=== PATIENT | female | born 1945 | race Caucasian/White ===

== ENCOUNTER → 2024-10-06 13:10 | Outpatient (REF) | payer MEDICARE, OTHER, SELFPAY | LOC: HWRAD 13:10 | PROVIDERS: ATTENDING PHYSICIAN Podiatrist Foot & Ankle Surgery; FAMILY PHYSICIAN Internal Medicine | DX: S92.402A Displaced unspecified fracture of left great toe, initial encounter for closed fracture (principal); S92.492A Other fracture of left great toe, initial encounter for closed fracture | CPT/HCPCS: 73630 ==

== ENCOUNTER 2024-11-08 20:34 | Emergency (ER) | payer MEDICARE, OTHER, SELFPAY ==
[2024-11-08 20:36] VITALS: BP 150/75
[2024-11-08 22:28] VITALS: BP 185/79
--- NOTE | 2024-11-08 22:47 | ED.GENMED ---
History of Present Illness
General
Chief Complaint: Back Pain
Source: patient and family
Exam Limitations: none
Time Seen by Provider: 11/08/24 22:26
Nursing documentation reviewed up to this point in time: agreed with
History of Present Illness
History of Present Illness:
79-year-old female presents emergency department complaining of low back pain ongoing for the past 5 weeks. She slipped and fell 5 weeks ago. She went to [facility] urgent care in [place] and had x-rays and, per patient there were normal.
Her primary care prescribed her tramadol, for which she is taking half the dose.
Past History
Past History
ED Past Medical History: Arrthythmia, HTN, NIDDM and Other (Diabetic neuropathy)
ED Past Surgical History: None
Social History
Tobacco: Non-smoker
Alcohol: None
Drug: None
Personal:
Living: with family
Review of Systems
Review of Systems
Allergies reviewed?: Yes
All Other Systems: Not applicable
Constitutional: Reports no symptoms
EENT: Reports no symptoms
Respiratory: Reports no symptoms
Cardiac: Reports no symptoms
ABD/GI: Reports no symptoms
: Reports no symptoms
Musculoskeletal: Reports back pain
Skin: Reports no symptoms
Neurological: Reports no symptoms
Endocrine: Reports no symptoms
Hematologic/Lymphatic: Reports no symptoms
Psychiatric: Reports no symptoms
Phy Exam
Physical Exam
Physical Exam:
Physical Exam
General: no apparent distress, not acutely ill
Neck: supple. no meningeal signs. normal posterior pharynx
Heart: s1/s2 regular rate and rhythm, no murmur. equal radial
pulses.
HEENT: Pupils equal round reactive to light, EOMI
Lungs: no acute respiratory distress. clear bilaterally
Abdomen: normal bowel sounds. not tender. no CVAT
Neuro: alert and oriented. no focal neurological deficits cranial nerves II through XII intact
back: no step off or tenderness
Skin: no rash
Psychiatric: well kept. interactive and cooperative
Extremities: no edema. no calf tenderness. negative homans. good distal pulses
Course
Orders/Labs/Results
Orders:
Orders
11/08/24 22:46
Hip, Left 2-3 Views [CR Hip - LT w/wo Pel 2-3 Vw*] Urgent
Comment:
Reason For Exam: left hip pain, fall 5wks ago
Include a pelvis x-ray?: Yes
Lumbar Spine Complete, 4 View [CR Lumbar Spine Comp Min 4 Vw*] Urgent
Comment:
Reason For Exam: low back pain, worsening, fall 5 wks ago
11/09/24 00:43
Gabapentin [Neurontin] 100 mg PO NOW STA
Vital Signs
Initial and Last Documented VS:
Initial Vital Signs
Temp Pulse Resp BP Pulse Ox
98.2 F 112 20 150/75 98
11/08/24 20:36 11/08/24 20:36 11/08/24 20:36 11/08/24 20:36 11/08/24 20:36
Last Documented Vital Signs
Temp Pulse Resp BP Pulse Ox
98.2 F 112 20 151/79 96
11/08/24 20:36 11/08/24 20:36 11/08/24 20:36 11/09/24 00:00 11/09/24 00:45
MDM/Problems Addressed
Differential Diagnosis Includes:
Hip fracture, pelvic fracture, lumbar fracture
MDM/Problems Addressed:
79-year-old female with low back pain after fall. Suspect low back strain. No signs of cauda equina. No acute fracture seen on x-rays. Stable for discharge. Patient has follow-up with orthopedics tomorrow.
Chronic conditions affecting care: Arrhythmia
Acute Exacerbation and/or Progression of Chronic Illness: Arrhythmia
*Radiology
Radiology exam reviewed: preliminary read by ED provider (Lumbar spine hip x-ray no acute findings)
*Pulse Oximetry
Patient hypoxic: no
*Critical Care Note
Total Time (30-74mins, 75-104mins- exclusive of procedures): Not Applicable
Data Reviewed
Further Testing Considered But Not Given:
CT and MRI not indicated
ED Attending Note
-
Portions of this chart may have been created with voice recognition software.� Occasional wrong word or��sound alike� substitutions may have occurred due to the inherent limitations of voice recognition software.
Discharge Plan
Departure
Patient Disposition: Home (Routine Discharge)
Date of Disposition: 11/09/24
Time of Disposition: 00:38
Patient with high blood pressure during this ER visit?: Yes
Condition: Good
Discharge Problem:
Low back pain, Fall
Instructions: Low Back Pain (DC), BLOOD PRESSURE
Prescriptions:
New
gabapentin 100 mg capsule
100 mg PO TID PRN (Reason: pain) Qty: 30 0RF
No Action
multivitamin [Multi-Day] 1 EACH tablet
1 ea PO DAILY
pioglitazone 15 MG tablet
15 mg PO DAILY
simvastatin 5 MG tablet
5 mg PO HS
sitagliptin phosphate [Januvia] 100 MG tablet
100 mg PO DAILY
Bifidobacterium infantis [Align (B.infantis)] 4 MG capsule
4 mg PO DAILY
calcium-vitamin D3-vitamin K 1 EACH tablet,chewable
1 tab PO DAILY
Vitamin D3:
5,000 units PO DAILY
simethicone [Phazyme] 250 MG capsule
250 mg PO Daily PRN (Reason: Gas)
apixaban [Eliquis] 5 MG tablet
5 mg PO BID Qty: 60 11RF
diltiazem HCl 180 MG capsule,extended release 24hr
180 mg PO BID Qty: 60 0RF
metoprolol succinate 50 MG tablet extended release 24 hr
50 mg PO DAILY Qty: 30 0RF
cefuroxime axetil 250 MG tablet
250 mg PO BID Qty: 12 0RF
azithromycin 250 MG tablet
500 mg PO DAILY Qty: 6 0RF
Referrals:
Romel Rodriguez MD [Family Provider] -
Interventions
Interventions:
*Risk Screen - Suicide Last Done: 11/08/24 20:36
*General Assessment Last Done: 11/08/24 20:36
*Neglect/Abuse Screening Last Done: 11/08/24 20:36
*ED- Fall Risk Assessment Last Done: 11/08/24 21:27
*ED COVID-19 Vaccine History Last Done: 11/08/24 21:27
*Nursing Disposition Last Done: 11/09/24 01:20
ED-Musculoskeletal Assessment Last Done: 11/08/24 22:31
Discharge Date and Time
Discharge Date/Time: 11/09/24 01:21
Print Language: HEBREW
[2024-11-08 23:07] VITALS: BP 158/73
[2024-11-09] VITALS: BP 151/79
[2024-11-09] MEDS: NEURONTIN 100 MG PO (00:51)
== END 2024-11-09 01:21 | disposition home or self-care (01) ==
LOC: EMR 20:34
PROVIDERS: EMERGENCY PHYSICIAN Emergency Medicine; FAMILY PHYSICIAN Internal Medicine
DX: S39.92XA Unspecified injury of lower back, initial encounter (principal); M54.50 Low back pain, unspecified; M25.552 Pain in left hip; W01.0XXA Fall on same level from slipping, tripping and stumbling without subsequent striking against object, initial encounter; I10 Essential (primary) hypertension; E11.40 Type 2 diabetes mellitus with diabetic neuropathy, unspecified; I49.9 Cardiac arrhythmia, unspecified; Z79.01 Long term (current) use of anticoagulants
CPT/HCPCS: 99283; 72110; 73502

== ENCOUNTER 2025-01-18 08:39 | Inpatient (IN) | payer MEDICARE, OTHER, SELFPAY ==
[2025-01-16] VITALS (10 sets, daily range): BP systolic 121–146; BP diastolic 59–86; BMI 31.9
[2025-01-16 12:41] LABS: Hematocrit 44.6 % (37.0-47.0); Hemoglobin 15.4 g/dL (12.0-16.0); Mean Corp Hgb Conc. 34.5 g/dL (33.0-37.0); Mean Corpuscular Volume 89.2 fL (81.0-99.0); Nucleated Red Blood Cells % 0 %; Platelet Count 244 10^3/uL (130-400); Red Cell Dist. Width 13.3 % (11.5-14.5)
--- NOTE | 2025-01-16 12:58 | ED.GENMED ---
History of Present Illness
General
Chief Complaint: Weakness
Source: patient and family
Time Seen by Provider: 01/16/25 12:41
History of Present Illness
History of Present Illness:
This patient is a 79-year-old female presents emergency department after first starting to feel unwell on Wednesday described as 'dry heaves' associated with anorexia and nausea. She is now tolerating some food and drink but very little and she
describes a loss of appetite, intermittent nausea and occasional dry heaves that continue. She denies hematemesis or coffee-ground emesis. She did see her doctor on Wednesday and at that time was describing feeling a 'pinch' described as 'discomfort
pain' in the left upper quadrant that comes and goes without specific provoking or relieving factors and without radiation. She thought it might be related to constipation. She was prescribed a medication but she cannot remember what it is. She
then noted an episode of diarrhea x 2 on Wednesday, no black stools or blood in her stool. She continues to feel very tired and weak. She noted today that she felt lightheaded when she stood up, denies syncope, chest pain, headache, neck pain, focal
weakness, change in vision, change in speech, back pain, urinary symptoms, cough, sore throat, rhinorrhea, or other complaints. Patient has not taken her usual doses of diabetes medications because of her poor appetite, and states her last
Accu-Chek was today and was noted to be 165
Past History
Past History
ED Past Medical History: Arrthythmia, HTN, Hypercholesterolemia, NIDDM and Other (Diabetic neuropathy)
ED Past Surgical History: None
Social History
Tobacco: Non-smoker
Alcohol: None
Drug: None
Personal:
Living: with family
Phy Exam
Physical Exam
Physical Exam:
GENERAL: Alert , in no apparent distress
EYE: pupils equal and reactive
NECK: Supple, no significant adenopathy.
ENT: o/p clr, mm dry.
CARDIAC: Irregular irregular
LUNGS: Clear breath sounds bilaterally, no acute respiratory distress, no wheezes/rales/rhonchi
ABDOMEN: Soft, without focal tenderness, no r/g, no cvat
NEUROLOGICAL: Alert and oriented, no focal neuro deficits
SKIN: Warm and dry, skin intact.
MUSCULOSKELETAL: No edema, well perfused.
PSYCH: Normal and appropriate interaction.
Sepsis
Sepsis Screening
Sepsis Assessment: Sepsis Ruled Out
Sepsis Screen
Sepsis Screen: Sepsis Ruled Out
Date: 01/17/25
Time: 11:43
Course
Orders/Labs/Results
Orders:
Orders
01/16/25 12:07
EKG [Electrocardiogram (*1)] Urgent
Reason for Study: Chest Pain
EKG- Treatment ONCE
CR Chest - 2 Views Urgent
Comment:
Reason For Exam: suspected infection
01/16/25 12:26
Basic Metabolic Panel Urgent
Complete Blood Count/With Diff Urgent
01/16/25 12:56
Bedside Glucose- Treatment ONCE
0.9% Sodium Chloride 1000 ml [Nss] 1,000 ml IV BOLUS
US Abdomen Complete/Upper Urgent
Comment:
Reason For Exam: n/v ,hx gallstones
01/16/25 13:50
Lactic Acid Urgent
Troponin I Urgent
01/16/25 13:51
B-Hydroxybutyrate Urgent
Blood Culture Q30M
JC Source: Blood/Venous
Specimen Description:
Blood Culture Q30M
JC Source: Blood/Venous
Specimen Description:
01/16/25 16:02
Urinalysis Reflex To Culture Urgent
Date Specimen was Collected: 01/16/25
Time Specimen was Collected: 15:04
Urine Microscopic Reflex Cult Urgent
Urine Culture Urgent
JC Source: U
Specimen Description:
Date Specimen was Collected: 01/16/25
Time Specimen was Collected: 15:04
07/22/25 18:33
Admit/Transfer Patient As Directed
Co-Sign Provider:
Level of Care: Observation services
Assign to:: Telemetry
Physician / Group: arya
Diagnosis: dehydration/starvation ketaosis
Reason for Telemetry: Arrhythmia
Date to Stop Telemetry: 01/19/25
Time to Stop Telemetry: 11:00
PRN Pain Medication Management As Directed
May give lesser potent ordered pain med per pt: Yes
preference::
Protocol:: Medication orders for pain may be administered in a
manner that supports deferring to patient preference
when the pt is:
- Requesting an ordered lesser potent pain medication.
Least to most potent pain medications are defined
as: acetaminophen < NSAID < tramadol < opioids
(morphine, oxycodone, hydromorphone).
- Requesting a lesser dose of the same medication IF
ORDERED.
- Requesting a less intrusive route of administration
if both routes are prescribed by the provider (PO <
IV).
01/16/25 18:35
Code Status As Directed
Resuscitation Status: Full Code
01/16/25 20:29
0.9% Sodium Chloride 1000 ml [Nss] 1,000 ml IV 80 mls/hr
Acetaminophen [Tylenol] 650 mg PO Q4HPRN PRN
Apixaban [Eliquis] 5 mg PO BID
Dextrose 50%-Water [Dextrose 50% Syringe] 12.5 grams IV [id number] PRN
Diltiazem Extended Release [Cardizem Cd] 240 mg PO BID
Glucagon [GlucaGen] 1 mg IM PRN PRN
Ondansetron Injectable [Zofran] 4 mg IV Q6HPRN PRN
01/16/25 20:29
Activity As Directed
Activity Level: As Tolerated
Bedside Glucose Monitoring As Directed
Frequency: AC&HS
Additional Instructions:: Change to q6h if pt on TPN, tube feeding or not eating
Vital Signs As Directed
Frequency: Per unit guidelines
01/16/25 22:00
Atorvastatin [Lipitor] 10 mg PO HS
insulin glargine [Lantus Solostar U-100 Insulin] 7 unit SC HS
01/17/25 06:13
Basic Metabolic Panel IN AM
Complete Blood Count/No Diff IN AM
Glycohemoglobin (HgbA1c) IN AM
01/17/25 07:30
Insulin Aspart Corrective Low [Novolog Flexpen-Low Resistance] See Protocol SC AC
01/17/25 08:00
Escitalopram Oxalate [Lexapro] 10 mg PO DAILY
Losartan [Cozaar] 50 mg PO DAILY
Pioglitazone HCl [Actos] 30 mg PO DAILY
Sitagliptin Phosphate [Januvia] 100 mg PO DAILY
01/18/25 06:00
Basic Metabolic Panel IN AM
01/19/25 06:00
Basic Metabolic Panel IN AM
01/19/25 11:00
DC Protocol for Telemetry ONCE
01/20/25 06:00
Basic Metabolic Panel IN AM
Abnormal Lab Results
01/16/25 01/16/25 01/16/25
12: 13:51 16:02
WBC 13.0 H 10^3/uL
(4.8-10.8)
Abs Immat Gran (auto) 0.1 H 10^3/uL
(0-0.05)
Absolute Neuts (auto) 10.3 H 10^3/uL
(1.4-6.5)
Absolute Monos (auto) 1.1 H 10^3/uL
(0.1-0.6)
Immature Gran % 0.8 H %
(0-0.5)
Neutrophils % 79.1 H %
(42.2-75.2)
Lymphocytes % 10.7 L %
(20.5-51.1)
Sodium 132 L mmol/L
(135-145)
Glucose 214 H mg/dl
(70-99)
Urine Ketones 3+ A
(Negative)
Ur Occult Blood Reflex 4+ A
(Negative)
Leukocyte Esterase Rfl 2+ A
(Negative)
Urine RBC 3-6 A /HPF
(0-2)
Urine Bacteria (Reflex) Moderate A
(Negative)
Urine Albumin (Reflex) 2+ A
(Neg - Trace)
B-Hydroxybutyrate 0.64 H mmol/L
(0.02-0.27)
POC Glucose
01/16/25
16:06
WBC
Abs Immat Gran (auto)
Absolute Neuts (auto)
Absolute Monos (auto)
Immature Gran %
Neutrophils %
Lymphocytes %
Sodium
Glucose
Urine Ketones
Ur Occult Blood Reflex
Leukocyte Esterase Rfl
Urine RBC
Urine Bacteria (Reflex)
Urine Albumin (Reflex)
B-Hydroxybutyrate
POC Glucose 153 H mg/dl
(70-99)
01/16/25 12:26
01/16/25 12:26
Vital Signs
Initial and Last Documented VS:
Initial Vital Signs
Temp Pulse Resp BP Pulse Ox
98.3 F 115 20 138/59 99
01/16/25 12:00 01/16/25 12:00 01/16/25 12:00 01/16/25 12:00 01/16/25 12:00
Last Documented Vital Signs
Temp Pulse Resp BP Pulse Ox
97.9 F 104 18 122/64 98
01/17/25 11:22 01/17/25 11:22 01/17/25 11:22 01/17/25 11:22 01/17/25 11:22
*Pulse Oximetry
SaO2: 99
Oxygen Mode of Delivery: Room air
Patient hypoxic: no
*Critical Care Note
Total Time (30-74mins, 75-104mins- exclusive of procedures): Not Applicable
Update Note
Update Note:
Patient presents to the Emergency Department with ___weakness, dry heaves
Number and Complexity of Problems Addressed at the Encounter
� Chronic conditions affecting care:
� Acute Exacerbation and/or Progression of Chronic Illness:
� Differential Diagnosis includes: Not limited to DKA, infection, electrolyte disorder, dehydration, ACS, etc. etc.
Amount and/or Complexity of Data to be Reviewed and Analyzed
� I performed an independent evaluation of and my interpretation is:
EKG: Read by me, A-fib, LAD, left bundle, no acute ischemia
CT:
Xrays:
Laboratory Studies: Mild hyponatremia, mild nonspecific leukocytosis. Patient does not have an anion gap however beta hydroxybutyrate elevated and blood sugar 150s.
Other:us There is cholelithiasis but no wall thickening, or pericholecystic fluid to suggest acute cholecystitis
There is fatty infiltration of the liver
� Review of other/old records reveals:
� Clinical information was obtained by an independent historian:
� Prescriptions/Medications Considered but not given:
� Further testing considered but not performed:
Risk of Complications and/or Morbidity or Mortality of Patient Management
� Social determinants of health affecting care:
� Discussion with other providers (PCP, Hospitalists, Consultants, etc):
� Escalation of care including admission/observation vs risk of discharge considered: Patient still feels generally unwell with poor appetite. Suspect lab abnormalities related to patient's poor p.o. intake/starvation ketosis.
Doubt euglycemic DKA given no anion gap noted. IV fluids, observation, usual insulin dosing.
ED Attending Note
-
Portions of this chart may have been created with voice recognition software.� Occasional wrong word or��sound alike� substitutions may have occurred due to the inherent limitations of voice recognition software.
Discharge Plan
Departure
Patient Disposition: Admit
Date of Disposition: 01/16/25
Time of Disposition: 18:52
Admit to: Med/Surg
Presentation/result/management discussed w/ accepting MD/DO: Hospitalist
Condition: Fair
Discharge Problem:
Diabetes, Dehydration
Interventions
Interventions:
*Risk Screen - Suicide Last Done: 01/16/25 21:30
*General Assessment Last Done: 01/16/25 12:56
*Neglect/Abuse Screening Last Done: 01/16/25 12:56
*ED- Fall Risk Assessment Last Done: 01/16/25 12:56
*ED COVID-19 Vaccine History Last Done: 01/16/25 21:30
*Nursing Disposition Last Done: 01/16/25 20:25
ED- Cardiac Assessment Last Done: 01/16/25 12:56
ED- Neurological Assessment Last Done: 01/16/25 12:56
ED- Pulmonary Assessment Last Done: 01/16/25 12:56
Discharge Date and Time
Discharge Date/Time: 01/16/25 20:25
[2025-01-16 13:21] LABS: Blood Urea Nitrogen 16 mg/dl (7-17); Calcium 9.4 mg/dl (8.4-10.2); Carbon Dioxide 22 mmol/L (22-30); Chloride 99 mmol/L (98-107); Estimated Creatinine Clearance 79 ml/min; Glucose 214 mg/dl (70-99); Sodium 132 mmol/L (135-145); eGFR > 60.00
[2025-01-16] MEDS: NSS 1000 IV ×2 (14:01→21:10)
[2025-01-16 14:29] LABS: Troponin I < 0.012 ng/ml
[2025-01-16 16:07] LABS: Glucose - Point of Care 153 mg/dl (70-99)
[2025-01-16 16:12] LABS: Urine Character Clear (Clear)
[2025-01-16 16:45] LABS: Urine Squamous Cell >30 /LPF (Few)
--- NOTE | 2025-01-16 18:10 | HPS.HSE ---
Addendum entered and electronically signed by Shira Masters MD 01/22/25 18:46:
Error in the attestation below
revised as follows:
I have seen and examined the patient personally and reviewed with OPERATIONAL RISK ANALYST/PA and agree with their note:
79-year-old female with diabetes type 2 on insulin, PAF, HTN presents with nausea weakness and poor appetite. She notes she was not taking her diabetes meds because she was not eating well.
On exam, VSS
Gen: NAD
HEENT: EOMI, PERRLA, MMM, neck supple
CV: Heart RRR, no m/g/r
Lungs: CTAB, no w/r/r
Abd: soft/NT/ND/NABS
MSK: no edema
Neuro: A+Ox3, no gross focal deficits
Psych: Calm
In the ED she is found to have a leukocytosis WBC 13, hyponatremia sodium 132, BG 214. Sample was hemolyzed. Beta hydroxybutyrate elevated at 0.64
UA: 3+ urine ketones, 4+ urine blood, 3-4 urine RBC, 2+ LE, moderate bacteria, 6-10 WBC, 2+ albumin
Assessment and plan:
Starvation ketosis�patient has diabetes and has ketosis but does not have any anion gap. Will treat with IV fluids and supportive care
Check CMP as ED lab was hemolyzed replete lytes as needed
Addendum entered and electronically signed by Shira Masters MD 01/16/25 19:53:
79-year-old female with diabetes type 2 on insulin, PAF, HTN presents with nausea weakness and poor appetite. She notes she was not taking her diabetes meds because she was not eating well.
50-year-old male with history of endocarditis s/p mechanical aortic valve replacement, complicated by septic emboli CVA with hemorrhagic conversion presents from loss rehab with large pericardial effusion on echo.
On exam, VSS
Gen: NAD
HEENT: EOMI, PERRLA, MMM, neck supple
CV: Heart RRR, no m/g/r
Lungs: CTAB, no w/r/r
Abd: soft/NT/ND/NABS
MSK: no edema
Neuro: A+Ox3, no gross focal deficits
Psych: Calm
In the ED she is found to have a leukocytosis WBC 13, hyponatremia sodium 132, BG 214. Sample was hemolyzed. Beta hydroxybutyrate elevated at 0.64
UA: 3+ urine ketones, 4+ urine blood, 3-4 urine RBC, 2+ LE, moderate bacteria, 6-10 WBC, 2+ albumin
Assessment and plan:
Starvation ketosis�patient has diabetes and has ketosis but does not have any anion gap. Will treat with IV fluids and supportive care
Check CMP as ED lab was hemolyzed replete lytes as needed
Original Note:
Family Physician
-
Family Physician: Romel Rodriguez
Chief Complaint
-
dry neaves.
History of Present Illness
79-year-old female with past medical history for hyperlipidemia, hypertension, left bundle branch block, paroxysmal A-fib, type 2 diabetes presents emergency department after first starting to feel unwell on Wednesday described as 'dry heaves'
associated with anorexia and nausea. she complained of intermittent left sided abdominal pinch for past 6 weeks. she was evaluated by PCP on Wednesday. she was prescribed Citrucel for possible constipation, which she took on Wednesday. Wednesday night to
Wednesday she was nauseous and dry heaving. she was bringing up mucous. she had couple episodes of diarrhea on Wednesday. today she felt very weak, tired and dizzy. patient stated very poor appetite. she took Imodium on Wednesday with no more diarrhea. She
was not taking her insulin but was taking her oral meds. denied DIAS or syncope. denied chest pain, sob. she has chronic cough. denied dysuria or hematuria.
Patient received normal saline in the ER. Blood culture sent from ER. Admitting for further management
Medical History
Past Medical History
Past Medical History: Reports Other
Additional Past Medical History:
hyperlipidemia, hypertension, left bundle branch block, paroxysmal A-fib, type 2 diabetes, mitral valve prolapse, IBS,
Past Surgical History: Reports Other
Additional Past Surgical History:
Bilateral cataract surgery, oral surgery
Social History
Tobacco: Non-smoker
Alcohol: None
Drug: None
Personal: Single
Living: Alone
Employment: Retired
Family History
Family History: Not pertinent
Allergies / Home Medications
Allergies reflects when Allergies were last updated in [employer].
Home Medications with original date entered in [employer]
Allergy/Medication List:
Allergies
Allergy/AdvReac Type Severity Reaction Status Date / Time
latex Allergy Unknown Rash Verified 01/16/25 12:06
No Known Drug Allergies Allergy Unknown Verified 01/16/25 12:06
Home Medications
simvastatin 5 mg tablet 5 mg PO HS 09/02/15
sitagliptin phosphate 100 mg tablet (Januvia) 100 mg PO DAILY 09/02/15
simethicone 250 mg capsule (Phazyme) 250 mg PO DAILYPRN PRN Gas 09/03/15
apixaban 5 mg tablet (Eliquis) 5 mg PO BID #60 tabs 09/05/15
Align (B.infantis) 4 mg PO DAILY 01/16/25
Citrucel 2 tsp PO ONCE 01/16/25
acetaminophen 500 mg tablet (Tylenol Extra Strength) 1,000 mg PO BIDPRN PRN mild pain 01/16/25
calcium 500 mg-vitamin D3 500 unit-vitamin K 40 mcg chewable tablet 1 tab PO BID 01/16/25
cholecalciferol (vitamin D3) 25 mcg (1,000 unit) tablet 25 mcg PO QPM 01/16/25
diltiazem HCl 240 mg capsule,extended release 24 hr (Cardizem CD) 240 mg PO BID 01/16/25
escitalopram oxalate 10 mg tablet 10 mg PO .SEE BELOW 01/16/25
insulin glargine 100 unit/mL (3 mL) subcutaneous pen (Lantus Solostar U-100 Insulin) 14 unit SC HS 01/16/25
losartan 50 mg tablet 50 mg PO DAILY 01/16/25
pioglitazone 30 mg tablet 30 mg PO DAILY 01/16/25
therapeutic multivitamin 1 tab PO QPM 01/16/25
Review of Systems
-
Constitutional: Reports No Symptoms
EENT: Reports No Symptoms
Respiratory: Reports No Symptoms
Cardiac: Reports No Symptoms
Abdomen/GI: Reports Abdominal Pain and Nausea
: Reports No Symptoms
Musculoskeletal: Reports No Symptoms
Skin: Reports No Symptoms
Neurological: Reports No Symptoms
Endocrine: Reports No Symptoms
Hematologic/Lymphatic: Reports No Symptoms
Psych: Reports No Symptoms
Physical Exam
Vital Signs
Vital Signs
Temp Pulse Resp BP Pulse Ox
98.3 F 106 25 142/68 93
01/16/25 12:00 01/16/25 17:30 01/16/25 17:30 01/16/25 17:00 01/16/25 16:45
Physical Exam
General: Well Developed, Well Nourished and No Apparent Distress
HEENT: NormoCephalic, Moist mucous membranes and Atraumatic
Respiratory: Clear
Cardiac: S1/S2 and Regular Rhythm; No Murmur or Rub
GI: Soft, Non Tender, Non Distended and Normal Bowel Sounds; No Organomegaly
Rectal: Deferred by Provider
Musculoskeletal: No Clubbing, No Cyanosis and No Edema
Skin: No Rash
Neuro: AO x 3 and Nonfocal/grossly intact
Psych: Calm
Laboratory Results
-
01/16/25 12:26
01/16/25 12:26
Laboratory Results
Lactic Acid 1.5 mmol/L (0.7-2.0) 01/16/25 13:50
Total Bilirubin Cancelled 01/16/25 12:26
AST Cancelled 01/16/25 12:26
ALT Cancelled 01/16/25 12:26
Alkaline Phosphatase Cancelled 01/16/25 12:26
Troponin I < 0.012 ng/ml 01/16/25 13:50
Data Reviewed
-
Diagnostic Radiology: Report Reviewed by me
Lab Data: Labs Reviewed by me
Impression/Plan
-
# Starvation ketosis secondary to intractable nausea/dry heaves/diarrhea
- Fluids continued
- Abdominal ultrasound with impression of cholelithiasis but no wall thickening, or pericholecystic fluid to suggest acute cholecystitis.There is fatty infiltration of the liver
- Chest x-ray with impression Hyperaeration suggests a component of COPD. There is no focal consolidation to suggest pneumonia.
-diet as tolerated
-Zofran prn
-fluids continued for hydration
# Leukocytosis likely reactive
- WBCs 13.0, patient is afebrile
- Continue to monitor
# Pseudohyponatremia
- Corrected sodium is 135
-CTM
# Paroxysmal A-fib
- Diltiazem, Eliquis continued
#Depression/anxiety
- Escitalopram continued
# Type 2 diabetes
- Lantus 7units, Januvia continued
- CHO diet
- Actos continue
# Hyperlipidemia
- Statin continue
# Essential hypertension
- Losartan continue
# DVT prophylaxis
- Eliquis
# CODE STATUS
- Full code
[2025-01-16 20:38] LABS: ALT (SGPT) 15 U/L (0-35); AST (SGOT) 20 U/L (14-36); Albumin 3.6 g/dl (3.5-5.0); Alkaline Phosphatase 93 U/L (38-126); Blood Urea Nitrogen 14 mg/dl (7-17); Calcium 8.5 mg/dl (8.4-10.2); Carbon Dioxide 25 mmol/L (22-30); Chloride 100 mmol/L (98-107); Estimated Creatinine Clearance 92 ml/min; Glucose 275 mg/dl (70-99); Potassium 3.7 mmol/L (3.5-5.1); Sodium 131 mmol/L (135-145); Total Protein 6.6 g/dl (6.3-8.2); eGFR > 60.00
[2025-01-16] MEDS: LIPITOR 10 MG PO (21:11)
[2025-01-16] MEDS: ELIQUIS 5 MG PO (21:11)
[2025-01-16] MEDS: CARDIZEM CD 240 MG PO (21:11)
[2025-01-16] MEDS: LANTUS 0.07 UNITS SC (21:16)
[2025-01-16 21:17] LABS: Glucose - Point of Care 269 mg/dl (70-99)
--- NOTE | 2025-01-16 22:00 | PTCARENOTE ---
Received pt from ED via stretcher. Pt AAOX3. Pox: 96% RA. Afib on teletypesetter monitor. IVFs infusing without difficulty. Call kennedy within reach. Plan of care ongoing.
[2025-01-17 03:00] VITALS: BP 126/66
--- NOTE | 2025-01-17 07:30 | W.PN.HOSP.TC ---
Today's Communication/Plan
-
Continue diet as tolerated
Diabetic nurse practitioner consulted for insulin management in the outpatient setting. The patient's hemoglobin A1c is 7.5%
MiraLAX added for ongoing constipation
Assessment / Plan
Assessment / Plan
HPI: Patient is a 79-year-old female with a past medical history of hyperlipidemia, hypertension, left bundle branch block, paroxysmal atrial fibrillation, and type 2 diabetes who presented to the emergency department after for starting to feel
unwell 5 days prior to her presentation. She describes her symptoms as 'dry heaves' associated with anorexia and nausea. She complained that she had intermittent left-sided abdominal pain for the last 6 weeks prior to her presentation. She was
evaluated by her PCP 5 days ago and she was prescribed Citrucel for possible constipation which she took the same day. That evening moving onto the next day she was nauseous with dry heaving. She started to bring up mucus. She had multiple
episodes of diarrhea on Wednesday (3 days prior). She tried to take Imodium on that Wednesday (3 days prior to her presentation) which helped resolve her diarrhea. The day of her presentation she felt very weak, tired, and dizzy. The patient continued to
have very poor appetite. She had not been taking her insulin during that time but continued to take her oral medications. She denied loss of consciousness or syncope. She denied chest pain and shortness of breath. She has a chronic cough. She
denied dysuria or hematuria. She received normal saline while in the emergency room and a blood culture was sent. She was admitted for starvation ketosis secondary to intractable nausea/dry heaves/diarrhea.
Assessment/Plan:
-Starvation ketosis secondary to intractable nausea/dry heaves/diarrhea/volume loss: Improving�monitoring
In the emergency department the patient had a POC glucose of 153, glucose on CMP was 214, anion gap was normal, urine analysis was 3+ positive for ketones, beta hydroxybutyrate was 0.64 which is elevated,
Continue IV fluid support
Nausea may be secondary to cholelithiasis but ultrasound showed cholelithiasis but with no wall thickening, or pericholecystic fluid to suggest acute cholecystitis.
Low carbohydrate diet
Antiemetics as needed
-Leukocytosis: Stable�improving
In the emergency department the patient had leukocytosis with a value of 13.0 which was likely reactive
Patient is afebrile
Urine analysis had a large quantity of squamous cells found in the specimen indicating dirty catch and likely should be ruled out
Awaiting blood cultures
Chest x-ray conducted showed hyperaeration suggesting component of COPD
Abdominal ultrasound showed cholelithiasis but no wall thickening or pericholecystic fluid to suggest acute cholecystitis. There was also fatty infiltration of the liver.
Leukocytosis resolving and is 9.1 on 01/17/2025
-Pseudohyponatremia: Stable�resolved
Patient had a sodium level of 132 and a glucose of 214 on arrival to the emergency department
Sodium correction for hyperglycemia was 135 mEq/L suggesting pseudohyponatremia
-Atrial fibrillation: Stable�monitoring
Continue diltiazem
Continue Eliquis
-Type 2 diabetes: Improving�monitoring
Continue Lantus 7 units
Continue aspart AC
Hemoglobin A1c is 7.5% indicating diabetes -there may be more room for improvement in regards to this patient's diabetic regimen. Consulted diabetic nurse practitioners for outpatient insulin and antidiabetic medication management.
Low carbohydrate diet
Continue pioglitazone and Januvia
Follow potassium as insulin is given
- Constipation: Unresolved�monitoring
MiraLAX as needed added
-Hyperlipidemia:
Continue simvastatin
-Essential hypertension:
Continue losartan
FULL CODE STATUS
DVT Prophylaxis: Eliquis
Imaging:
- Chest x-ray conducted on 01/16/2025:
Hyperaeration suggests a component of COPD. There is no focal consolidation to suggest pneumonia.
- Abdominal ultrasound conducted on 01/16/2025:
There is cholelithiasis but no wall thickening, or pericholecystic fluid to suggest acute cholecystitis
There is fatty infiltration of the liver
Procedures: Not applicable
Anticipated Discharge: 24 - 48 hours
Subjective/Interval History
-
Date of Service: January 17, 2025
Met with the patient at the bedside. She is kind and pleasant in discussion. She shared her medical history and discussed the whole course of her most recent illness leading to her admission here in the hospital. She stated that she feels
embarrassed that she did not manage herself well in the outpatient setting and that she knows better as a longtime diabetic. Supportive counseling provided at the bedside. She stated that she does not do fingerstick glucoses very frequently and I
reminded her that this may be helpful in ensuring that her glucose is adequately controlled. She looks forward to her visiting her later on today. She has feeling of constipation and asked for MiraLAX.
Objective Data
-
Labs:
Labs
01/17/25 06:13
01/17/25 06:13
Vital Signs:
Vital Signs
Temp Pulse Resp BP Pulse Ox
98.6 F 98 18 144/73 98
01/17/25 07:50 01/17/25 07:50 01/17/25 07:50 01/17/25 07:50 01/17/25 07:50
I&O
01/16/25 01/17/25 01/18/25
06:59 06:59 06:59
Intake Total 480 / 480
Balance 480 / 480
Review of Systems
-
History Source: Patient
Constitutional: Reports No Symptoms
EENT: Reports No Symptoms Reported
Respiratory: Reports No Symptoms
Cardiac: Reports No Symptoms
[2025-01-17 07:50] VITALS: BP 144/73
[2025-01-17 07:59] LABS: Hematocrit 36.7 % (37.0-47.0); Hemoglobin 12.7 g/dL (12.0-16.0); Mean Corp Hgb Conc. 34.6 g/dL (33.0-37.0); Mean Corpuscular Volume 91.8 fL (81.0-99.0); Platelet Count 221 10^3/uL (130-400); Red Cell Dist. Width 13.4 % (11.5-14.5)
[2025-01-17 08:32] LABS: Blood Urea Nitrogen 10 mg/dl (7-17); Calcium 8.4 mg/dl (8.4-10.2); Carbon Dioxide 27 mmol/L (22-30); Chloride 101 mmol/L (98-107); Estimated Creatinine Clearance 89 ml/min; Glucose 178 mg/dl (70-99); Potassium 3.5 mmol/L (3.5-5.1); Sodium 135 mmol/L (135-145); eGFR > 60.00
[2025-01-17 09:15] LABS: Glucose - Point of Care 224 mg/dl (70-99)
[2025-01-17 09:32] LABS: Glycohemoglobin (HgbA1c) 7.5 % (4.0-5.6)
[2025-01-17] MEDS: ELIQUIS 5 MG PO ×2 (09:49→20:51)
[2025-01-17] MEDS: CARDIZEM CD 240 MG PO ×2 (09:49→20:52)
[2025-01-17] MEDS: ACTOS 30 MG PO (09:49)
[2025-01-17] MEDS: JANUVIA 100 MG PO (09:50)
[2025-01-17] MEDS: COZAAR 50 MG PO (09:50)
[2025-01-17] MEDS: NOVOLOG FLEXPEN-LOW RESISTANCE 2 UNITS SC (09:50)
[2025-01-17] MEDS: NSS 1000 IV (09:51)
[2025-01-17] MEDS: ZOFRAN 4 MG IV (09:57)
[2025-01-17 11:22] VITALS: BP 122/64
[2025-01-17] MEDS: NOVOLOG FLEXPEN-LOW RESISTANCE SC (11:30)
--- NOTE | 2025-01-17 11:40 | PTCARENOTE ---
01/17/2025 DIABETES EDUCATION CONSULT
Met with Marlys, states she was not eating due to nausea and vomiting, She has IBS and has been on FODMAP diet in the past which was helpful. She is working on appointment with GI. I explained etiology of DKA in setting of no food and not taking
insulin. She states she discussed importance of taking insulin with nausea/vomiting with DM SUPERVISOR [employer]. I reviewed the mechanism of action, onset, timing and duration of Lantus; reviewed proper insulin storage and injection technique. She states she was
not holding in insulin pen for 5-10 seconds, will start this upon discharge. She checks her glucose once a day 3-4 days a week, at times will go a week without checking glucose. I encouraged her to check her glucose daily and review with her HCP.
She will contact office if she has questions in the future.
[2025-01-17 11:46] LABS: Glucose - Point of Care 188 mg/dl (70-99)
--- NOTE | 2025-01-17 11:46 | PN.DE.MGMTRT ---
Insulin Management
- -
01/17/2025 Diabetes Management Consult
Patient admitted 01/16 with weakness, N & V since Wednesday. PMH HTN, HCL, diabetes. Prior to admission was taking 14 units lantus @ HS with Januvia 100 mg daily and Actos 30 mg daily. A1C on admission 7.5%, cr .5, eGFR >60.
Patient is awake alert and oriented sitting on side of bed consuming breakfast, no nausea or vomiting. Able to discuss diabetes care. Has had diabetes 23 years, sees Dr. Grimes tobacco buyer for ongoing diabetes care, due for follow up
February or March. Has glucose monitor and supplies. Discussed importance of taking insulin even a reduced dose when not feeling well and to not take the pills. She was not aware.
Received 7 units lantus @ HS, fasting glucose this AM 224. Will increase hs lantus to 12 units. Januvia and Actos ordered with low corrective insulin.
Discussed with nurse.
Will follow.
Diabetes History
- -
Type of Diabetes: 2 requiring insulin
Pre-Admission Diabetes Regimen
01/16/25 01/16/25 01/17/25
12:26 20:00 06:13
Creatinine 0.7 0.5 L 0.5 L
Lab Results
Hemoglobin A1c 7.5 % (4.0-5.6) H 01/17/25 06:13
Insulin Pump Settings
IP Diabetes Regimen
01/16/25 01/16/25 01/16/25
12:26 16:06 20:00
Glucose 214 H 275 H
POC Glucose 153 H
01/16/25 01/17/25 01/17/25
21:15 06:13 09:13
Glucose 178 H
POC Glucose 269 H 224 H
Patient Education
[2025-01-17] MEDS: MIRALAX 17 GRAMS PO (13:07)
[2025-01-17 15:40] VITALS: BP 100/61
--- NOTE | 2025-01-17 16:20 | CM ---
Alert awake oriented patient who lives with her Raad in a 3 story home with 0 steps to enter and 13 steps to bed/bathroom. She is independent in activates of daily living.She does drive .She uses a cane.VERA letter given explained signed
on chart.Offered VN she declined at this time.
[facility] VN in past . [facility]
PCP Dr Rodriguez
PLAN Home with no needs
[2025-01-17 17:14] LABS: Glucose - Point of Care 251 mg/dl (70-99)
[2025-01-17] MEDS: NOVOLOG FLEXPEN-LOW RESISTANCE 3 UNITS SC (18:06)
[2025-01-17 19:40] VITALS: BP 128/65
[2025-01-17] MEDS: LIPITOR 10 MG PO (20:52)
[2025-01-17 21:28] LABS: Glucose - Point of Care 191 mg/dl (70-99)
[2025-01-17] MEDS: LANTUS 0.12 UNITS SC (22:29)
[2025-01-17 23:30] VITALS: BP 130/74
[2025-01-18] MEDS: NSS 1000 IV (00:02)
[2025-01-18 03:20] VITALS: BP 135/64
[2025-01-18 07:33] VITALS: BP 113/65
[2025-01-18 07:39] LABS: Blood Urea Nitrogen 12 mg/dl (7-17); Calcium 8.9 mg/dl (8.4-10.2); Carbon Dioxide 26 mmol/L (22-30); Chloride 104 mmol/L (98-107); Estimated Creatinine Clearance 89 ml/min; Glucose 155 mg/dl (70-99); Potassium 3.7 mmol/L (3.5-5.1); Sodium 135 mmol/L (135-145); eGFR > 60.00
[2025-01-18 07:46] LABS: Glucose - Point of Care 149 mg/dl (70-99)
--- NOTE | 2025-01-18 07:48 | PN.DE.MGMTRT ---
Insulin Management
- -
01/18/2025 Diabetes Management Consult Follow up
Patient admitted 01/16 with weakness, N & V since Wednesday. PMH HTN, HCL, diabetes. Prior to admission was taking 14 units lantus @ HS with Januvia 100 mg daily and Actos 30 mg daily. A1C on admission 7.5%, cr .5, eGFR >60.
Patient is awake alert and oriented sitting on side of bed consuming breakfast, no nausea or vomiting. Able to discuss diabetes care. 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
February or March. Has glucose monitor and supplies. Discussed importance of taking insulin even a reduced dose when not feeling well and to not take the pills. She was not aware.
Pre dinner glucose 251, patient drinking REGULAR gatorade, appetite improved no issues with nausea or vomiting. Received 12 units lantus @ HS, fasting glucose improved this AM 149. Will increase hs lantus to 14 units, home dose. Januvia and Actos
ordered with low corrective insulin.
Discussed with nurse.
Will follow.
Diabetes History
- -
Type of Diabetes: 2 requiring insulin
Pre-Admission Diabetes Regimen
01/17/25 01/18/25
06:13 06:15
Creatinine 0.5 L 0.5 L
Lab Results
Hemoglobin A1c 7.5 % (4.0-5.6) H 01/17/25 06:13
Insulin Pump Settings
IP Diabetes Regimen
01/17/25 01/17/25 01/17/25
06:13 09:13 11:41
Glucose 178 H
POC Glucose 224 H 188 H
01/17/25 01/17/25 01/18/25
17:11 21:27 06:15
Glucose 155 H
POC Glucose 251 H 191 H
01/18/25
07:44
Glucose
POC Glucose 149 H
Meal type: Breakfast
Patient Education
[2025-01-18] MEDS: NOVOLOG FLEXPEN-LOW RESISTANCE SC (08:15)
[2025-01-18] MEDS: ELIQUIS 5 MG PO (08:33)
[2025-01-18] MEDS: CARDIZEM CD 240 MG PO (08:33)
[2025-01-18] MEDS: COZAAR 50 MG PO (08:33)
[2025-01-18] MEDS: JANUVIA 100 MG PO (08:33)
[2025-01-18] MEDS: ACTOS 30 MG PO (08:33)
[2025-01-18 08:43] LABS: Hematocrit 38.4 % (37.0-47.0); Hemoglobin 13.0 g/dL (12.0-16.0); Mean Corp Hgb Conc. 33.9 g/dL (33.0-37.0); Mean Corpuscular Volume 91.6 fL (81.0-99.0); Platelet Count 228 10^3/uL (130-400); Red Cell Dist. Width 13.4 % (11.5-14.5)
--- NOTE | 2025-01-18 09:37 | W.PN.HOSP.TC ---
Today's Communication/Plan
-
Patient appears to be at her baseline
Will move forward with discharge planning if patient's oral intake is adequate.
Assessment / Plan
Assessment / Plan
HPI: Patient is a 79-year-old female with a past medical history of hyperlipidemia, hypertension, left bundle branch block, paroxysmal atrial fibrillation, and type 2 diabetes who presented to the emergency department after for starting to feel
unwell 5 days prior to her presentation. She describes her symptoms as 'dry heaves' associated with anorexia and nausea. She complained that she had intermittent left-sided abdominal pain for the last 6 weeks prior to her presentation. She was
evaluated by her PCP 5 days ago and she was prescribed Citrucel for possible constipation which she took the same day. That evening moving onto the next day she was nauseous with dry heaving. She started to bring up mucus. She had multiple
episodes of diarrhea on Wednesday (3 days prior). She tried to take Imodium on that Wednesday (3 days prior to her presentation) which helped resolve her diarrhea. The day of her presentation she felt very weak, tired, and dizzy. The patient continued to
have very poor appetite. She had not been taking her insulin during that time but continued to take her oral medications. She denied loss of consciousness or syncope. She denied chest pain and shortness of breath. She has a chronic cough. She
denied dysuria or hematuria. She received normal saline while in the emergency room and a blood culture was sent. She was admitted for starvation ketosis secondary to intractable nausea/dry heaves/diarrhea.
Assessment/Plan:
-Starvation ketosis secondary to intractable nausea/dry heaves/diarrhea/volume loss: Improving�monitoring
In the emergency department the patient had a POC glucose of 153, glucose on CMP was 214, anion gap was normal, urine analysis was 3+ positive for ketones, beta hydroxybutyrate was 0.64 which is elevated,
Continue IV fluid support
Nausea may be secondary to cholelithiasis but ultrasound showed cholelithiasis but with no wall thickening, or pericholecystic fluid to suggest acute cholecystitis.
Low carbohydrate diet
Antiemetics as needed
-Leukocytosis: Stable�improving
In the emergency department the patient had leukocytosis with a value of 13.0 which was likely reactive
Patient is afebrile
Urine analysis had a large quantity of squamous cells found in the specimen indicating dirty catch and likely should be ruled out
Awaiting blood cultures
Chest x-ray conducted showed hyperaeration suggesting component of COPD
Abdominal ultrasound showed cholelithiasis but no wall thickening or pericholecystic fluid to suggest acute cholecystitis. There was also fatty infiltration of the liver.
Leukocytosis resolving and is 9.1 on 01/17/2025
-Pseudohyponatremia: Stable�resolved
Patient had a sodium level of 132 and a glucose of 214 on arrival to the emergency department
Sodium correction for hyperglycemia was 135 mEq/L suggesting pseudohyponatremia
-Atrial fibrillation: Stable�monitoring
Continue diltiazem
Continue Eliquis
-Type 2 diabetes: Improving�monitoring
Continue Lantus 7 units
Continue aspart AC
Hemoglobin A1c is 7.5% indicating diabetes -there may be more room for improvement in regards to this patient's diabetic regimen. Consulted diabetic nurse practitioners for outpatient insulin and antidiabetic medication management.
Low carbohydrate diet
Continue pioglitazone and Januvia
Follow potassium as insulin is given
- Constipation: Unresolved�monitoring
MiraLAX as needed added
Abdominal x-ray conducted on 01/17/2025 showed moderate fecal material in the colon with no evidence of intestinal obstruction
-Hyperlipidemia:
Continue simvastatin
-Essential hypertension:
Continue losartan
FULL CODE STATUS
DVT Prophylaxis: Eliquis
Imaging:
- Chest x-ray conducted on 01/16/2025:
Hyperaeration suggests a component of COPD. There is no focal consolidation to suggest pneumonia.
- Abdominal ultrasound conducted on 01/16/2025:
There is cholelithiasis but no wall thickening, or pericholecystic fluid to suggest acute cholecystitis
There is fatty infiltration of the liver
-Abdominal x-ray conducted on 01/17/2025:
Moderate fecal material in the colon. No evidence of intestinal obstruction. Progressed
Procedures: Not applicable
Anticipated Discharge: Within 24 hours
Subjective/Interval History
-
Date of Service: January 18, 2025
Patient states that she is doing much better today. She stated that she was having dry heaves yesterday and also had a bout of nausea this morning. She still believes that she is doing much better than she has been prior to admission. She would
try to eat her breakfast and see how she does. Patient received education from the diabetic nurse practitioner and is aware of her insulin adjustments. She looks forward to going home possibly today if she feels well enough. She looks forward to
meeting with her 2 cats and 2 dogs and along with her . She feels constipated and will take more MiraLAX to hopefully get her bowels moving better. She states that she hopes to have her bowel movement outside of the hospital because she is
worried that she will create a mess and feels embarrassed about that. Supportive counseling provided at the bedside and reassurance given that her health is our primary concern.
Objective Data
-
Labs:
Laboratory Results
01/18/25 01/18/25
06:15 08:11
WBC 9.9
Hgb 13.0
Hct 38.4
Plt Count 228
Sodium 135
Potassium 3.7
Chloride 104
Carbon Dioxide 26
BUN 12
Creatinine 0.5 L
Glucose 155 H
Calcium 8.9
Vital Signs:
Vital Signs
Temp Pulse Resp BP Pulse Ox
98.5 F 85 16 113/65 96
01/18/25 07:33 01/18/25 07:33 01/18/25 07:33 01/18/25 07:33 01/18/25 07:33
I&O
01/17/25 01/18/25 01/19/25
06:59 06:59 06:59
Intake Total 480 / 480 480 / 480
Balance 480 / 480 480 / 480
Review of Systems
-
History Source: Patient
All other systems: Reviewed and negative
EENT: Reports No Symptoms Reported
Respiratory: Reports No Symptoms
Cardiac: Reports No Symptoms
Abdomen/GI: Reports Bloated
Breast: Reports No Symptoms
Genitourinary: Reports No Symptoms
Musculoskeletal: Reports No Symptoms
Skin: Reports No Symptoms
Neuro: Reports No Symptoms
Endocrine: Reports No Symptoms
Hematologic / Lymphatic: Reports No Symptoms
Allergy / Immunology: Reports No Symptoms
Physical Exam
-
General: Well Developed, Well Nourished and No Apparent Distress
HEENT: Normocephalic and Atraumatic
Respiratory: Clear to Auscultation; Negative Wheezes, Rales, Rhonchi or Crackles
Cardiac: Regular Rhythm and S1/S2
GI: Soft, Nontender, Nondistended and Normal Bowel Sounds
Rectal: Deferred by Provider
Genito-urinary: Deferred by me
Musculoskeletal: No Clubbing, No Cyanosis and No Edema
Skin: Warm, Dry and Rash; Negative Ulcers or Lesions
Neuro: Awake, Alert, Oriented and AO x 3
Psych: Calm
[2025-01-18 09:50] VITALS: BP 132/65; PULSE 92; PULSE 95; O2SAT 97
[2025-01-18 11:11] VITALS: BP 122/60
[2025-01-18 11:51] LABS: Glucose - Point of Care 184 mg/dl (70-99)
[2025-01-18] MEDS: PROTONIX 20 MG PO (11:54)
[2025-01-18] MEDS: NOVOLOG FLEXPEN-LOW RESISTANCE 1 UNITS SC (11:54)
[2025-01-18 15:09] VITALS: BP 123/63
--- NOTE | 2025-01-18 15:52 | CM ---
MD entered order for discharge.
Pt said her Pool will drive her home.
Offered VN she declined . She said she was going to resume out pt PT. She will set up.
PLAN Home no needs
--- NOTE | 2025-01-18 17:50 | W.DCSUMMARY ---
Documented by User: Lauren Ruiz MD, Resident 01/18/25 18:03
Discharge Summary
Discharge Data
Date of Admission: 01/18/25
Date of Discharge: 01/18/25
-
Pending Results: No
Hospital Course
Discharging Physician : Rodolfo Woody DO
Disposition : Home
Primary care physician : Romel Rodriguez
Principal Discharge diagnosis : Nausea and vomiting-- suspected dyspepsia and constipation, status post starvation ketosis
Chronic Discharge diagnosis : Vitamin D deficiency, atrial fibrillation, depression, GERD, type 2 diabetes mellitus, essential hypertension, constipation, hyperlipidemia
Hospital Course : Patient is a 79-year-old female with a past medical history of hyperlipidemia, hypertension, left bundle branch block, paroxysmal atrial fibrillation, and type 2 diabetes who presented to the emergency department after for
starting to feel unwell 5 days prior to her presentation. She describes her symptoms as 'dry heaves' associated with anorexia and nausea. She complained that she had intermittent left-sided abdominal pain for the last 6 weeks prior to her
presentation. She was evaluated by her PCP 5 days ago and she was prescribed Citrucel for possible constipation which she took the same day. That evening moving onto the next day she was nauseous with dry heaving. She started to bring up mucus.
She had multiple episodes of diarrhea on Wednesday (3 days prior). She tried to take Imodium on that Wednesday (3 days prior to her presentation) which helped resolve her diarrhea. The day of her presentation she felt very weak, tired, and dizzy. The
patient continued to have very poor appetite. She had not been taking her insulin during that time but continued to take her oral medications. She denied loss of consciousness or syncope. She denied chest pain and shortness of breath. She has a
chronic cough. She denied dysuria or hematuria. She received normal saline while in the emergency room and a blood culture was sent. She was admitted for starvation ketosis secondary to intractable nausea/dry heaves/diarrhea.
Patient was given IV fluid support. Blood cultures drawn had no growth. Chest x-ray conducted during this hospitalization showed hyperaeration. Abdominal wall ultrasound showed cholelithiasis but no wall thickening or pericholecystic fluid to
suggest acute cholecystitis. There was also fatty infiltration of the liver. With conservative management leukocytosis but the patient presented with resolved. The patient had pseudohyponatremia with a sodium level of 132 and a glucose of 214.
Patient was started on insulin and her hyperglycemia corrected. Patient was started on 7 units of Lantus with aspart and insulin sliding scale. Hemoglobin A1c was found to be 7.5 indicating poor control of diabetes. Diabetic nurse practitioners
were consulted for outpatient insulin and antidiabetic medication management. Patient was recommended to be on a low carbohydrate diet during the hospital stay but then was advanced to a regular diet. Patient had bouts of nausea and constipation
prompting an abdominal x-ray which showed moderate fecal material in the colon with no evidence of intestinal obstruction. Patient was given MiraLAX and symptoms improved. Patient's Lantus was returned to 14 units once her blood glucose was back
near baseline. Patient was connected with gastroenterology and will have a follow-up appointment after discharge for her dyspeptic symptoms. Patient was started on a PPI and as needed famotidine. Home blood glucose goal to be 140�180.
The patient has reached maximal benefit from this hospital admission and the patient is appropriate for discharge at the present time. There are no barriers that would impede the patient from being discharged from the hospital at the present time.
The patient should follow-up with their primary care provider within 1 week following discharge. Patient should follow-up with gastroenterology and they will reach out to her regarding her availability to make an appointment.
Important imaging findings :
- Chest x-ray conducted on 01/16/2025:
Hyperaeration suggests a component of COPD. There is no focal consolidation to suggest pneumonia.
- Abdominal ultrasound conducted on 01/16/2025:
There is cholelithiasis but no wall thickening, or pericholecystic fluid to suggest acute cholecystitis
There is fatty infiltration of the liver
-Abdominal x-ray conducted on 01/17/2025:
Moderate fecal material in the colon. No evidence of intestinal obstruction. Progressed
Procedure findings : Not applicable
Discharge Plan
-
Patient Disposition: Home (Routine Discharge)
Discharge Diagnosis/Procedures: Nausea and vomiting-- suspected dyspepsia and constipation
Status post starvation ketosis
Electrolyte deficiencies
IDDM 2 with hyperglycemia
Condition: Fair
Diet: As tolerated
Activity: As tolerated
Blood Work: Repeat BMP, magnesium level, phosphorus level, CBC 1 week after discharge
Others Tests: Follow-up in office with underwriting consultant for possible EGD and colonoscopy
Activity Restrictions/Additional Instructions:
Schedule follow-up appointment with your family doctor, should be seen in office within 1 to 2 weeks of discharge from the hospital
Will follow-up with gastroenterology in office. Referral provided below, spoke with them prior to discharge and they state the office should reach out to you to schedule an upcoming office visit
Referrals:
Romel Rodriguez MD [Family Provider, Internal Medicine]
Agnieszka Zelaya DO [Active, Gastroenterology]
Additional Discharge Medication Instructions: Bowel regimen: Take senna 8.6 mg twice daily and MiraLAX 17 g daily for 1 week (can stop if bowel movements become too frequent; if not providing adequate relief to constipation then start bisacodyl
suppository as needed)
Dyspepsia regimen: Pantoprazole 20 mg daily, for breakthrough symptoms take famotidine 20 mg as needed
Nausea: Zofran as needed every 6 hours
Prescriptions:
New
famotidine 20 mg Tablet
20 mg PO DAILY PRN (Reason: indigestion/heartburn) 30 Days Qty: 30 0RF
pantoprazole 20 mg Tablet,Delayed Release (Dr/Ec)
20 mg PO DAILY 30 Days Qty: 30 0RF
sennosides [senna] 8.6 mg tablet
8.6 mg PO BID 7 Days Qty: 14 0RF
polyethylene glycol 3350 [Miralax] 17 gram powder in packet
17 g PO DAILY 7 Days Qty: 14 0RF
bisacodyl 10 mg suppository
10 mg MT DAILY PRN (Reason: Constipation) Qty: 30 0RF
ondansetron 4 mg tablet,disintegrating
4 mg PO Q8H PRN (Reason: nausea and vomiting) 5 Days Qty: 20 0RF
Continued
simvastatin 5 MG tablet
5 mg PO HS
Januvia 100 MG tablet
100 mg PO DAILY
Phazyme 250 MG capsule
250 mg PO DAILYPRN PRN (Reason: Gas)
Eliquis 5 MG tablet
5 mg PO BID Qty: 60 11RF
Align (B.infantis)
4 mg PO DAILY
losartan 50 mg Tablet
50 mg PO DAILY
diltiazem HCl [Cardizem CD] 240 mg Capsule,Extended Release 24hr
240 mg PO BID
therapeutic multivitamin Tablet
1 tab PO QPM
acetaminophen [Tylenol Extra Strength] 500 mg Tablet
1,000 mg PO BIDPRN PRN (Reason: mild pain)
pioglitazone 30 mg Tablet
30 mg PO DAILY
escitalopram oxalate 10 mg Tablet
10 mg PO .SEE BELOW
Patient Comments:
01/16/2025, pt. took first dose of this med. last Wednesday and started to feel sick and has not taken it since; prescribed for pt. to take 1 tablet daily.
cholecalciferol (vitamin D3) 25 mcg (1,000 unit) Tablet
25 mcg PO QPM
insulin glargine [Lantus Solostar U-100 Insulin] 100 unit/mL (3 mL) Insulin Pen
14 unit SC HS
calcium-vitamin D3-vitamin K 500 mg-500 unit -40 mcg Tablet,Chewable
1 tab PO BID
Discontinued
Citrucel powder
2 tsp PO ONCE
Discharge Orders:
Discharge Patient (As Directed); Ordered 01/18/25
Ordered By: Rodolfo Woody
Discharge Date and Time
Discharge Date/Time: 01/18/25 16:01
Print Language: [place]

Documented by User: Rodolfo Woody DO 01/19/25 11:33
Discharge Summary
Discharge Data
Date of Admission: 01/18/25
Date of Discharge: 01/18/25
Total time spent discharging patient (in min): 32
Discharge Plan
-
Patient Disposition: Home (Routine Discharge)
Discharge Diagnosis/Procedures: Nausea and vomiting-- suspected dyspepsia and constipation
Status post starvation ketosis
Electrolyte deficiencies
IDDM 2 with hyperglycemia
Condition: Fair
Diet: As tolerated
Activity: As tolerated
Blood Work: Repeat BMP, magnesium level, phosphorus level, CBC 1 week after discharge
Others Tests: Follow-up in office with underwriting consultant for possible EGD and colonoscopy
Activity Restrictions/Additional Instructions:
Schedule follow-up appointment with your family doctor, should be seen in office within 1 to 2 weeks of discharge from the hospital
Will follow-up with gastroenterology in office. Referral provided below, spoke with them prior to discharge and they state the office should reach out to you to schedule an upcoming office visit
Referrals:
Romel Rodriguez MD [Family Provider, Internal Medicine]
Agnieszka Zelaya DO [Active, Gastroenterology]
Additional Discharge Medication Instructions: Bowel regimen: Take senna 8.6 mg twice daily and MiraLAX 17 g daily for 1 week (can stop if bowel movements become too frequent; if not providing adequate relief to constipation then start bisacodyl
suppository as needed)
Dyspepsia regimen: Pantoprazole 20 mg daily, for breakthrough symptoms take famotidine 20 mg as needed
Nausea: Zofran as needed every 6 hours
Prescriptions:
New
famotidine 20 mg Tablet
20 mg PO DAILY PRN (Reason: indigestion/heartburn) 30 Days Qty: 30 0RF
pantoprazole 20 mg Tablet,Delayed Release (Dr/Ec)
20 mg PO DAILY 30 Days Qty: 30 0RF
sennosides [senna] 8.6 mg tablet
8.6 mg PO BID 7 Days Qty: 14 0RF
polyethylene glycol 3350 [Miralax] 17 gram powder in packet
17 g PO DAILY 7 Days Qty: 14 0RF
bisacodyl 10 mg suppository
10 mg MT DAILY PRN (Reason: Constipation) Qty: 30 0RF
ondansetron 4 mg tablet,disintegrating
4 mg PO Q8H PRN (Reason: nausea and vomiting) 5 Days Qty: 20 0RF
Continued
simvastatin 5 MG tablet
5 mg PO HS
Januvia 100 MG tablet
100 mg PO DAILY
Phazyme 250 MG capsule
250 mg PO DAILYPRN PRN (Reason: Gas)
Eliquis 5 MG tablet
5 mg PO BID Qty: 60 11RF
Align (B.infantis)
4 mg PO DAILY
losartan 50 mg Tablet
50 mg PO DAILY
diltiazem HCl [Cardizem CD] 240 mg Capsule,Extended Release 24hr
240 mg PO BID
therapeutic multivitamin Tablet
1 tab PO QPM
acetaminophen [Tylenol Extra Strength] 500 mg Tablet
1,000 mg PO BIDPRN PRN (Reason: mild pain)
pioglitazone 30 mg Tablet
30 mg PO DAILY
escitalopram oxalate 10 mg Tablet
10 mg PO .SEE BELOW
Patient Comments:
01/16/2025, pt. took first dose of this med. last Wednesday and started to feel sick and has not taken it since; prescribed for pt. to take 1 tablet daily.
cholecalciferol (vitamin D3) 25 mcg (1,000 unit) Tablet
25 mcg PO QPM
insulin glargine [Lantus Solostar U-100 Insulin] 100 unit/mL (3 mL) Insulin Pen
14 unit SC HS
calcium-vitamin D3-vitamin K 500 mg-500 unit -40 mcg Tablet,Chewable
1 tab PO BID
Discontinued
Citrucel powder
2 tsp PO ONCE
Discharge Orders:
Discharge Patient (As Directed); Ordered 01/18/25
Ordered By: Rodolfo Woody
Discharge Date and Time
Discharge Date/Time: 01/18/25 16:01
Print Language: [place]
== END 2025-01-18 16:01 | disposition home or self-care (01) | DRG 392 ==
LOC: 4 EAST ACU 08:39
PROVIDERS: Emergency Medicine; Registered Nurse; ADMITTING PHYSICIAN Internal Medicine; ATTENDING PHYSICIAN Internal Medicine; EMERGENCY PHYSICIAN Emergency Medicine; FAMILY PHYSICIAN Internal Medicine
DX: R10.13 Epigastric pain (principal); E87.1 Hypo-osmolality and hyponatremia; I31.39 Other pericardial effusion (noninflammatory); F41.9 Anxiety disorder, unspecified; F32.A Depression, unspecified; E88.89 Other specified metabolic disorders; Z95.2 Presence of prosthetic heart valve; Z79.4 Long term (current) use of insulin; E11.40 Type 2 diabetes mellitus with diabetic neuropathy, unspecified; I10 Essential (primary) hypertension; K21.9 Gastro-esophageal reflux disease without esophagitis; D72.829 Elevated white blood cell count, unspecified; E78.00 Pure hypercholesterolemia, unspecified; I44.7 Left bundle-branch block, unspecified; I48.0 Paroxysmal atrial fibrillation; K58.0 Irritable bowel syndrome with diarrhea; K76.0 Fatty (change of) liver, not elsewhere classified; K80.20 Calculus of gallbladder without cholecystitis without obstruction; Z91.128 Patient's intentional underdosing of medication regimen for other reason; T38.3X6A Underdosing of insulin and oral hypoglycemic [antidiabetic] drugs, initial encounter; T73.0XXA Starvation, initial encounter; Z79.01 Long term (current) use of anticoagulants; Z79.84 Long term (current) use of oral hypoglycemic drugs; Z86.73 Personal history of transient ischemic attack (TIA), and cerebral infarction without residual deficits; Z86.79 Personal history of other diseases of the circulatory system
CPT/HCPCS: 71046; 74018; 76700; 80048; 80053; 81003; 81015; 82010; 82962; 83036; 83605; 84484; 85025; 85027; 87040; 87086; 93005; 96360; 97162; 97166; 99285